=== PATIENT | female | born 1935 ===

== ENCOUNTER 2018-08-10 06:12 | Day surgery (SDC) | payer MEDICARE, MEDICAID ==
[2018-06-06 11:58] VITALS: BMI 33.3
[2018-08-10 07:07] LABS: BASO # 0.01 K/mm3 (0.0-2.0); BASO % 0.1 % (0.0-3.0); EOS # 0.2 (0.0-0.7); EOS % 1.4 % (1.5-5.0); GRAN # 7.92 (1.4-6.5); GRAN % 71.2 % (50.0-68.0); HEMOGLOBIN 10.4 g/dL (12.0-16.0); LYMPH # 2.2 (1.2-3.4); LYMPH % 19.8 % (22.0-35.0); MEAN CELL VOLUME 91.5 fl (80.0-105.0); MEAN CORPUSCULAR HEMOGLOBIN 29.6 pg (25.0-35.0); MEAN CORPUSCULAR HGB CONC 32.4 g/dl (31.0-37.0); MEAN PLATELET VOLUME 8.6 fl (7.0-11.0); MONO # 0.8 (0.1-0.6); MONO % 7.5 % (1.0-6.0); RBC 3.51 10^6/uL (3.5-6.1); RED CELL DISTRIBUTION WIDTH 13.6 % (11.5-14.5); WHITE BLOOD COUNT 11.1 10^3/uL (4.5-11.0)
[2018-08-10 07:10] LABS: INR 1.13; PARTIAL THROMBOPLASTIN TIME 28.2 Seconds (25.1-36.5)
[2018-08-10 07:11] LABS: CALCIUM 9.4 mg/dL (8.4-10.5)
[2018-08-10] MEDS ORDERED: Phenylephrine 10 mg/ml Inj ONE (07:44)
[2018-08-10] MEDS ORDERED: Lidocaine 2% Inj (20ml) ONE (07:44)
[2018-08-10] MEDS ORDERED: Adenosine 90 mg/30mL IV ONE (07:44)
[2018-08-10] MEDS ORDERED: Heparin 2,000 ML IV ONE (07:45)
[2018-08-10] MEDS ORDERED: Iohexol 350mgl/ml 50 ML ONE (07:45)
[2018-08-10] MEDS ORDERED: Nitroglycerin 50mg in D5W 50 MG/250 ML BOTTLE IV ONE (07:45)
[2018-08-10] MEDS ORDERED: Iodixanol 320 MG/ML 200 ML BOTTLE IV ONE (07:45)
[2018-08-10] MEDS ORDERED: Iodixanol 320 MG/ML 100 ML BOTTLE IV ONE (07:45)
[2018-08-10] MEDS ORDERED: Midazolam 2 MG/2 ML VIAL ONE ×3 (08:34→09:44)
[2018-08-10] MEDS ORDERED: Eptifibatide 20 mg/10mL Inj IVP ONE ×2 (09:59→10:04)
[2018-08-10] MEDS ORDERED: Morphine 4 mg/ml ISec ONE (10:02)
--- NOTE | 2018-08-10 16:05 | CARDCATH ---
PROCEDURE DATE: 08/10/2018 PROCEDURE NOTE INDICATIONS: Jess is an 83-year-old female with past medical history significant for severe peripheral vascular occlusive disease, status post angioplasty and stenting of bilateral SFA, who had severe CAD status post PTCA and stenting of RCA, underwent a nuclear stress test which was abnormal secondary to symptoms of dyspnea on exertion. They also noted to have a nonhealing ulcer ongoing for more than 6 months and therefore was brought to the company laborer for further evaluation and treatment of underlying CAD and peripheral vascular disease. PROCEDURE PERFORMED: Left heart catheterization with selective left and right coronary angiogram, left ventriculogram, FFR of RCA physiologically is nonsignificant at 0.87. This bilaterally selective bilateral COURT COMMISSIONER of left SFA in-stent restenosis drug-coated balloon. Lesion reduction from 100 percent down to 10 percent, unable to restore the flow secondary to diffuse thrombus. A 6-Lao right femoral artery access Mynx closure device for hemostasis. Left heart cath findings, left main large-sized vessel bifurcates into LAD and circumflex. LAD has diffuse 50 to 60 percent calcified stenosis, gives off two small diagonal branches, left-sided vessel runs in the AV groove. SMA 25 percent stenosis, gives off obtuse marginal branch. RCA proximal 70 percent calcific stenosis, gives off right PDA and PLV . Distal RCA stents are patent. FFR of the right coronary artery showed FFR was 0.87 physiologically nonsignificant. Subsequently, was performed. Catheter was subsequently advanced to the left common femoral artery due to the left SFA . Angiographic findings of the lower extremity, bilateral patent, profunda femoris patent, SFA diffuse, in-stent restenosis 50 to 60 percent in the right SFA. One vessel peroneal going up to the ankle with superficial wire at collateral circulation. Left lower extremity, left common patent. SFA 100 percent occluded, in-stent restenosis, profunda femoris patent, distal via the collaterals feeding popliteal with one vessel run-off below the knee. Left below the knee shows peroneal feeding up to the level of the foot with superficial and deep . INTERVENTION: Attempt was made to cross the in-stent restenosis with 0.035 and subsequently 0.018 wire and balloon angioplasty was attempted, which was able to decrease the in-stent restenosis, but unable to restore the flow secondary to heavy thrombus burden. Because of the amount that I used, it was decided to bring the patient back with possible atherectomy. IMPRESSION: Physiologically nonsignificant right coronary artery stenosis, diffuse coronary artery disease, left superficial femoral artery and in-stent restenosis, unable to recanalize secondary to heavy thrombus burden, right superficial femoral artery, in-stent restenosis. RECOMMENDATIONS: Guideline-directed therapy for CAD and PVD and then first stage intervention of the left SFA and deep possibly atherectomy. Emmanuel Acosta MD
--- NOTE | 2018-08-10 16:17 | CP.PCM.CON ---
History of Present Illness - History of Present Illness History of Present Illness: Nephrology Consultation Note: Assessment: Stable CAD, PVD Diabetic chronic Kidney Disease (E11.22) Hypertensive Chronic Kidney Disease (I12.0) End stage renal disease (N18.6) dependence on hemodialysis (Z99.2) (MWF) via AVF Anemia (D64.9), Hyperphosphatemia (E83.39), Secondary Hyperparathyroidism (E21.1), HTN (I12.0) Plan: Will plan for HD today if okay/considered stable by cardiology as recent tele with concerns for intermittent junctional rhythm otherwise Will plan for dialysis tomorrow. Continue with Nephrovite 1 tab/day. stable K and volume status okay PRBC as needed for anemia. not on JORY with dialysis as last Hb 10.4 Continue with phos binders BP control with meds as ordered. Glycemic control, Dialysis consistent diet Further work up/management as per primary team Dose meds/antibiotics (if needed) for ESRD status. Avoid fleets enema/magnesium based laxatives. Thanks for allowing me to participate in care of your patient. Will follow patient with you. Please call if any Qs Dr Jovani Bell Office: [phone] Chief Complaint; dialysis HPI: Pt is a 83 F with hx of ESRD on hemodialysis (MWF) via AVF , last dialysis mon, chronic anemia, hyperphosphatemia, secondary hyperparathyroidism, Diabetes Mellitus, hypertension CAD PVD presented for elective cath for CAD and PVD. Renal consult requested for ESRD management. she feels usual health reports of junctional rhythm on tele ROS: Cardiovascular: No chest pain. Pulmonary: No shortness of breath Gastrointestinal: denies abdominal pain No nausea. No vomiting. Genitourinary: No pain while urinating. Denies blood in urine. All other negative except as mentioned in HPI Physical Examination: General Appearance: Comfortable, in no acute respiratory distress, co-operative . obese Vitals reviewed and noted as below Head; Atraumatic, normocephalic ENT: no ulcers no thrush. Tongue is midline. Oropharynx: no rash or ulcers. EYES: Pupils are equal, round and reactive to light accommodation. Eye muscles and extraocular movement intact. Sclera is anicteric. Neck; supple no lymphadenopathy, no thyromegaly or bruit Lungs: Normal respiratory rate/effort. Breath sounds bilateral equal and clear Heart: Normal rate. s1s2 normal. No rub or gallop. Extremities: no edema. No varicose veins. left foot in dressing Neurological: Patient is alert, awake and oriented to person, place and time. No focal deficit. Strength bilateral appropriate and equal Skin: Warm and dry. Normal turgor. No rash. Palpitation: Normal elasticity for age Abdomen: Abdomen is soft. Bowel sounds +. There is no abdominal tenderness, no guarding/rigidity or organomegaly Psych: limited insight and normal affect/mood MSK: no joint tenderness or swelling. Digits and nails normal, no deformity : kidney or bladder not palpable Access: AVF Labs/imaging reviewed. Past medical history, past surgical history, family history, social history, allergy reviewed and noted as below Family Hx: no hx of CKD. Non contributory Past Patient History - Tetanus Immunizations Tetanus Immunization: Unknown - Past Medical History & Family History Past Medical History?: Yes - Past Social History Smoking Status: Never Smoked - CARDIAC Hx Pacemaker: No - PULMONARY Hx Bronchitis: Yes Hx Chronic Obstructive Pulmonary Disease (COPD): Yes Hx Pneumonia: Yes (requiring hospitalization AUG 2017) - NEUROLOGICAL Hx Paralysis: No - HEENT Hx Cataracts: Yes (CHASITY IOL) - RENAL Hx Chronic Kidney Disease: Yes Hx Kidney Stones: No - ENDOCRINE/METABOLIC Hx Hypothyroidism: Yes - HEMATOLOGICAL/ONCOLOGICAL Hx Blood Transfusions: Yes Hx Blood Transfusion Reaction: No - INTEGUMENTARY Hx Dermatological Problems: Yes Other/Comment: Chronic left ankle wound AND LEFT FOOT - MUSCULOSKELETAL/RHEUMATOLOGICAL Hx Musculoskeletal Disorders: Yes - GASTROINTESTINAL Hx Gastrointestinal Disorders: Yes Other/Comment: C/O NAUSEA NO VOMITTING - GENITOURINARY/GYNECOLOGICAL Hx Genitourinary Disorders: No Hx Urinary Tract Infection: Yes - PSYCHIATRIC Hx Emotional Abuse: No Hx Physical Abuse: No Hx Substance Use: No - SURGICAL HISTORY Hx Surgeries: Yes - ANESTHESIA Hx Anesthesia Reactions: No Hx Malignant Hyperthermia: No Meds Allergies/Adverse Reactions: Allergies Allergy/AdvReac Type Severity Reaction Status Date / Time ciprofloxacin [From Cipro] AdvReac Intermediate VOMITING Verified 01/18/18 16:15 Results - Vital Signs Recent Vital Signs: Last Vital Signs Temp 98 F 08/10/18 11:35 Pulse 62 08/10/18 15:20 Resp 18 08/10/18 15:20 BP 142/60 08/10/18 15:20 Pulse Ox 95 12/12/18 06:45 - Labs Result Diagrams: 08/10/18 06:50 08/10/18 06:50 Labs: Laboratory Results - last 24 hr 08/10/18 08/10/18 08/10/18 06:50 06:50 06:50 WBC 11.1 H RBC 3.51 Hgb 10.4 L Hct 32.1 L MCV 91.5 MCH 29.6 MCHC 32.4 RDW 13.6 Plt Count 303 MPV 8.6 Gran % 71.2 H Lymph % (Auto) 19.8 L Culberson % (Auto) 7.5 H Eos % (Auto) 1.4 L Baso % (Auto) 0.1 Gran # 7.92 H Lymph # (Auto) 2.2 [place] # (Auto) 0.8 H Eos # (Auto) 0.2 Baso # (Auto) 0.01 PT 13.0 H INR 1.13 APTT 28.2 Sodium 135 Potassium 4.7 Chloride 96 L Carbon Dioxide 29 Anion Gap 15 BUN 67 H Creatinine 6.2 H Est GFR ( Amer) 8 Est GFR (Non-Af Amer) 6 POC Glucose (mg/dL) Random Glucose 209 H Hemoglobin A1c Calcium 9.4 Blood Type Antibody Screen BBK History Checked 08/10/18 08/10/18 08/10/18 06:50 06:50 11:58 WBC RBC Hgb Hct MCV MCH MCHC RDW Plt Count MPV Gran % Lymph % (Auto) Culberson % (Auto) Eos % (Auto) Baso % (Auto) Gran # Lymph # (Auto) [place] # (Auto) Eos # (Auto) Baso # (Auto) PT INR APTT Sodium Potassium Chloride Carbon Dioxide Anion Gap BUN Creatinine Est GFR ( Amer) Est GFR (Non-Af Amer) POC Glucose (mg/dL) 210 H Random Glucose Hemoglobin A1c 7.4 H Calcium Blood Type O POSITIVE Antibody Screen Negative BBK History Checked Patient has bt
[2018-08-10] MEDS: Insulin Reg-LOW-Coverage SC SCH (22:03)
[2018-08-11 00:55] VITALS: BP 105/47; RESP 20; O2SAT 97
[2018-08-11 06:37] VITALS: TEMP 98.2
[2018-08-11] MEDS ORDERED: Levothyroxine 100 MCG TAB PO SCH (09:00)
[2018-08-11] MEDS ORDERED: metOLazone 5 MG TAB PO SCH (10:00)
[2018-08-11] MEDS ORDERED: Metoprolol Succinate 50 mg XL Tab PO SCH (10:00)
[2018-08-11] MEDS ORDERED: Omega-3-Acid Ethyl Esters 1 GM Cap PO SCH (10:00)
[2018-08-11] MEDS ORDERED: Multivitamin Vitamin B Complex (Nephro-Vite) Tab PO SCH (10:00)
[2018-08-11] MEDS: Insulin Reg-LOW-Coverage SC SCH (13:34)
--- NOTE | 2018-08-11 14:23 | CP.PCM.HP ---
History of Present Illness - History of Present Illness History of Present Illness: Marc Ya DO, PGY-1 Cardiology Admission History and Physical for Dr. Dave Mercado is a pleasant 83 year old female with PMH of CAD (s/p JAVIER to RCA), PVD (s/p peripheral angioplasty x 2), CKD (on MWF HD), DM2, and osteoporosis who is admitted s/p repeat L heart cath with peripheral angio. Cath found physiologically nonsignificant RCA stenosis, diffuse CAD, L SFA in-stent restenosis. Attempt was made to correct in-stent restenosis with subsequent decrease of the in-stent stenosis. On examination after procedure, patient states she feels fine and denied CP, SOB, cough, peripheral pain, pain at the insertion site, and nausea/vomiting. As patient is s/p L heart cath with peripheral angio with hx of CKD, arrangements were made for inpatient monitoring and dialysis after the procedure. Patient normally goes for MWF dialysis at [facility]. Dr. Bell's group was consulted and arrangements for HD will be made. PMH: CAD (s/p JAVIER to RCA), PVD (s/p peripheral angioplasty x 2), CKD (on MWF HD), DM2, and osteoporosis PSH: cardiac cath January 2017, R partial foot amputation All: ciprofloxacin Soc Hx: denies current tobacco, alcohol, or drug use. Is ambulatory at home but is not very active otherwise. Fam Hx: reviewed, non-contributory Home meds: reviewed, as per MAR Present on Admission - Present on Admission Any Indicators Present on Admission: No History of DVT/PE: No History of Uncontrolled Diabetes: No Urinary Catheter: No Decubitus Ulcer Present: No Review of Systems - Constitutional Constitutional: absent: Chills, Fever - EENT Eyes: absent: Blurred Vision - Cardiovascular Cardiovascular: Claudication. absent: Chest Pain, Chest Pain at Rest, Chest Pain with Activity, Diaphoresis, Dyspnea, Lightheadedness, Palpitations - Respiratory Respiratory: absent: Cough, Dyspnea - Gastrointestinal Gastrointestinal: absent: Abdominal Pain, Nausea, Vomiting - Genitourinary Genitourinary: absent: Change in Urinary Stream Past Patient History - Tetanus Immunizations Tetanus Immunization: Unknown - Past Medical History & Family History Past Medical History?: Yes - Past Social History Smoking Status: Never Smoked - CARDIAC Hx Pacemaker: No - PULMONARY Hx Bronchitis: Yes Hx Chronic Obstructive Pulmonary Disease (COPD): Yes Hx Pneumonia: Yes (requiring hospitalization AUG 2017) - NEUROLOGICAL Hx Paralysis: No - HEENT Hx Cataracts: Yes (CHASITY IOL) - RENAL Hx Chronic Kidney Disease: Yes Hx Kidney Stones: No - ENDOCRINE/METABOLIC Hx Hypothyroidism: Yes - HEMATOLOGICAL/ONCOLOGICAL Hx Blood Transfusions: Yes Hx Blood Transfusion Reaction: No - INTEGUMENTARY Hx Dermatological Problems: Yes Other/Comment: Chronic left ankle wound AND LEFT FOOT - MUSCULOSKELETAL/RHEUMATOLOGICAL Hx Musculoskeletal Disorders: Yes - GASTROINTESTINAL Hx Gastrointestinal Disorders: Yes Other/Comment: C/O NAUSEA NO VOMITTING - GENITOURINARY/GYNECOLOGICAL Hx Genitourinary Disorders: No Hx Urinary Tract Infection: Yes - PSYCHIATRIC Hx Emotional Abuse: No Hx Physical Abuse: No Hx Substance Use: No - SURGICAL HISTORY Hx Surgeries: Yes - ANESTHESIA Hx Anesthesia Reactions: No Hx Malignant Hyperthermia: No Meds Allergies/Adverse Reactions: Allergies Allergy/AdvReac Type Severity Reaction Status Date / Time ciprofloxacin [From Cipro] AdvReac Intermediate VOMITING Verified 01/18/18 16:15 Physical Exam - Constitutional Appears: Non-toxic, No Acute Distress - Head Exam Head Exam: ATRAUMATIC, NORMOCEPHALIC - Eye Exam Eye Exam: EOMI, Normal appearance, PERRL - ENT Exam ENT Exam: Mucous Membranes Moist - Neck Exam Neck exam: Positive for: Full Rom, Normal Inspection - Respiratory Exam Respiratory Exam: Clear to Auscultation Bilateral, NORMAL BREATHING PATTERN. absent: Rales, Rhonchi, Wheezes - Cardiovascular Exam Cardiovascular Exam: REGULAR RHYTHM, RRR, +S1, +S2. absent: Diastolic murmur, Gallop, Rubs, Systolic Murmur - GI/Abdominal Exam GI & Abdominal Exam: Normal Bowel Sounds. absent: Guarding, Tenderness - Extremities Exam Extremities exam: Positive for: full ROM, normal capillary refill, pedal pulses present. Negative for: calf tenderness, pedal edema - Neurological Exam Neurological exam: Alert, Oriented x3 - Psychiatric Exam Psychiatric exam: Normal Affect, Normal Mood - Skin Skin Exam: Dry, Intact, Warm Results - Vital Signs Recent Vital Signs: Last Vital Signs Temp 98.2 F 08/11/18 06:00 Pulse 66 08/11/18 06:00 Resp 20 08/11/18 00:01 BP 105/47 L 08/11/18 00:01 Pulse Ox 97 08/11/18 00:01 - Labs Result Diagrams: 08/10/18 06:50 08/10/18 06:50 Labs: Laboratory Results - last 24 hr 08/10/18 08/10/18 08/11/18 16:31 21:20 07:18 POC Glucose (mg/dL) 266 H 220 H 213 H Assessment & Plan - Assessment and Plan (Free Text) Assessment: 83 yo F with PMH of CAD (s/p JAVIER to RCA), PVD (s/p peripheral angioplasty x 2), CKD (on MWF HD), DM2, and osteoporosis is admitted s/p repeat L heart cath with peripheral angiogram for monitoring and cashier receptionist of inpatient HD. Plan: S/p L heart cath with peripheral angio Peripheral angio found in-stent stenosis of R SFA Attempt was made to reduce in-stent stenosis but unable to restore flow 2/2 heavy thrombus burden Recommend continued medical management of CAD and PVD with ASA, plavix May discharge home tomorrow after dialysis HHD Monitor on telemetry, discharge tomorrow Case and plan reviewed and discussed with my attending Dr. Dave Ya DO IM Resident PGY-1 - Date & Time Date: 08/10/18 Time: 15:00
--- NOTE | 2018-08-11 14:54 | CP.PCM.PN ---
Subjective - Date & Time of Evaluation Date of Evaluation: 08/11/18 Time of Evaluation: 14:53 - Subjective Subjective: Nephrology Consultation Note: Assessment: Stable CAD, PVD Diabetic chronic Kidney Disease (E11.22) Hypertensive Chronic Kidney Disease (I12.0) End stage renal disease (N18.6) dependence on hemodialysis (Z99.2) (MWF) via AVF Anemia (D64.9), Hyperphosphatemia (E83.39), Secondary Hyperparathyroidism (E21.1), HTN (I12.0) Plan: Will plan for HD today Continue with Nephrovite 1 tab/day. PRBC as needed for anemia. not on JORY with dialysis as last Hb 10.4 Continue with phos binders BP control with meds as ordered. Glycemic control, Dialysis consistent diet Further work up/management as per primary team Dose meds/antibiotics (if needed) for ESRD status. Avoid fleets enema/magnesium based laxatives. Thanks for allowing me to participate in care of your patient. Will follow patient with you. Please call if any Qs Dr Jovani Bell Office: [phone] Chief Complaint; dialysis HPI: Pt is a 83 F with hx of ESRD on hemodialysis (MWF) via AVF , last dialysis mon, chronic anemia, hyperphosphatemia, secondary hyperparathyroidism, Diabetes Mellitus, hypertension CAD PVD presented for elective cath for CAD and PVD. Renal consult requested for ESRD management. she feels usual health reports of junctional rhythm on tele ROS: Cardiovascular: No chest pain. Pulmonary: No shortness of breath Gastrointestinal: denies abdominal pain No nausea. No vomiting. Genitourinary: No pain while urinating. Denies blood in urine. All other negative except as mentioned in HPI Physical Examination: General Appearance: Comfortable, in no acute respiratory distress, co-operative . obese Vitals reviewed and noted as below Head; Atraumatic, normocephalic ENT: no ulcers no thrush. Tongue is midline. Oropharynx: no rash or ulcers. EYES: Pupils are equal, round and reactive to light accommodation. Eye muscles and extraocular movement intact. Sclera is anicteric. Neck; supple no lymphadenopathy, no thyromegaly or bruit Lungs: Normal respiratory rate/effort. Breath sounds bilateral equal and clear Heart: Normal rate. s1s2 normal. No rub or gallop. Extremities: no edema. No varicose veins. left foot in dressing Neurological: Patient is alert, awake and oriented to person, place and time. No focal deficit. Strength bilateral appropriate and equal Skin: Warm and dry. Normal turgor. No rash. Palpitation: Normal elasticity for age Abdomen: Abdomen is soft. Bowel sounds +. There is no abdominal tenderness, no guarding/rigidity or organomegaly Psych: limited insight and normal affect/mood MSK: no joint tenderness or swelling. Digits and nails normal, no deformity : kidney or bladder not palpable Access: AVF Labs/imaging reviewed. Past medical history, past surgical history, family history, social history, allergy reviewed and noted as below Family Hx: no hx of CKD. Non contributory Objective - Vital Signs/Intake and Output Vital Signs (last 24 hours): Temp Pulse Resp BP Pulse Ox 98.2 F 66 20 105/47 L 97 08/11/18 06:00 08/11/18 06:00 08/11/18 00:01 08/11/18 00:01 08/11/18 00:01 Intake and Output: 08/11/18 08/11/18 06:59 18:59 Intake Total 240 Output Total 250 Balance -10 - Medications Medications: Current Medications Aspirin (Aspirin Chewable) 81 mg PO DAILY [facility] Atorvastatin Calcium (Lipitor) 10 mg PO DIN [facility] Clopidogrel Bisulfate (Plavix) 75 mg PO DAILY [facility] Fenofibrate (Tricor) 145 mg PO DAILY [facility] Furosemide (Lasix) 80 mg PO DAILY [facility] Last Admin: 08/11/18 10:01 Dose: Not Given Insulin Human Regular (Humulin R Low) 0 units SC [facility]; Protocol Last Admin: 08/11/18 13:34 Dose: Not Given Levothyroxine Sodium (Synthroid) 100 mcg PO ACB [facility] Metolazone (Zaroxolyn) 5 mg PO DAILY [facility] Last Admin: 08/11/18 10:03 Dose: Not Given Metoprolol Succinate (Toprol Xl) 50 mg PO DAILY [facility] Last Admin: 08/11/18 10:02 Dose: Not Given [id number] Ethyl Esters (Lovaza) 2 gm PO DAILY [facility] Sevelamer HCl (Renagel) 800 mg PO TID [facility] Last Admin: 08/11/18 10:03 Dose: Not Given Vitamin B Complex/Vit C/Folic Acid (Nephro-Emily) 1 tab PO DAILY [facility] Vitamin E (Vitamin E 400 Units Cap) 400 intlu PO DAILY [facility] - Labs Labs: 08/10/18 06:50 08/10/18 06:50 PT 13.0 SECONDS (9.4-12.5) H 08/10/18 06:50 INR 1.13 08/10/18 06:50 APTT 28.2 Seconds (25.1-36.5) 08/10/18 06:50
[2018-08-11 16:09] VITALS: PULSE 69
--- NOTE | 2018-08-11 21:44 | CARD ---
APPROVED REPORT Date of service: 08/11/2018 EKG Measurement Heart [id number] <Conclusion> Normal sinus rhythm with sinus arrhythmia T wave abnormality, consider lateral ischemia Prolonged QT Abnormal ECG
== END 2018-08-11 17:24 | disposition home or self-care (01) ==
LOC: CATH 06:12 → 2RSO 11:36 → CATH 08-11 17:24
PROVIDERS: ATTEND Internal Medicine Interventional Cardiology
DX: I25.10 Atherosclerotic heart disease of native coronary artery without angina pectoris (principal); I12.0 Hypertensive chronic kidney disease with stage 5 chronic kidney disease or end stage renal disease; N18.6 End stage renal disease; T82.856A Stenosis of peripheral vascular stent, initial encounter; E11.51 Type 2 diabetes mellitus with diabetic peripheral angiopathy without gangrene; E11.22 Type 2 diabetes mellitus with diabetic chronic kidney disease; I74.3 Embolism and thrombosis of arteries of the lower extremities; D64.9 Anemia, unspecified; E03.9 Hypothyroidism, unspecified; E83.39 Other disorders of phosphorus metabolism; N25.81 Secondary hyperparathyroidism of renal origin; J44.9 Chronic obstructive pulmonary disease, unspecified; Z99.2 Dependence on renal dialysis; Z79.4 Long term (current) use of insulin
CPT/HCPCS: 36415; 37224; 80048; 82948 ×2; 83036; 85025; 85610; 85730; 86850; 86900; 93005; 93458; 93571; 99152; 99153; C1725 ×4; C1760 ×2; C1769 ×5; C1887 ×2; C1894; C2629; J0153; J1327; J1644 ×2; J2250; J2270; J3010; Q9966; Q9967 ×2

== ENCOUNTER 2018-10-24 08:13 | Day surgery (SDC) | payer OTHER, MEDICARE, MEDICAID ==
[2018-10-12 23:53] VITALS: BMI 32.3
[2018-10-24] MEDS ORDERED: Verapamil 0 ML ONE (09:54)
[2018-10-24] MEDS ORDERED: Lidocaine PF 2% (5 ml) Inj (For Cardiac Arrhy) ONE (09:54)
[2018-10-24] MEDS ORDERED: Adenosine 90 mg/30mL IV ONE ×3 (09:54→11:10)
[2018-10-24] MEDS ORDERED: Iodixanol 320 MG/ML 200 ML BOTTLE IV ONE (09:56)
[2018-10-24] MEDS ORDERED: Iohexol 350mgl/ml 50 ML ONE (09:56)
[2018-10-24] MEDS ORDERED: Heparin 2,000 ML IV ONE (09:56)
[2018-10-24] MEDS ORDERED: Midazolam 2 MG/2 ML VIAL ONE ×2 (10:13→10:34)
[2018-10-24] MEDS ORDERED: Sodium Chloride 0.9% 1,000 ML IV SCH (12:45)
[2018-10-24 14:09] VITALS: TEMP 97.4
[2018-10-24 14:12] VITALS: O2SAT 99
--- NOTE | 2018-10-24 17:04 | CARDCATH ---
PROCEDURE DATE: 10/24/2018 INDICATION: Ms. Jess Theodore is an 83-year-old female who was transferred over from [facility], [place] after having an episode of non-ST elevation CT. The patient underwent a diagnostic catheterization showing high grade distal RCA stenosis and moderate proximal RCA stenosis. PROCEDURES: Left heart catheterization with selective right coronary angiogram. PTCA stenting of distal RCA with deployment of 3.0 x 18 Jani drug-eluting stent, regeneration from 85% down to 0% ENRIKE-3 flow, FFR of proximal RCA physiologically non-significant at 0.81, 6-Indian right femoral artery access, and Mynx closure device for hemostasis. ANGIOGRAPHIC FINDINGS: Proximal RCA was patent, nonobstructive with 65-70% stenosis. RCA stent patent. Distal RCA at the bifurcation had a 90% stenosis. [facility] wire was used to negotiate through the distal RCA. Lesion was predilated with a 2.0, 2.5 and 3.0 balloon and subsequently stented with a 3.0 x 8 Frazer drug-eluting stent. Finally FFR of the proximal RCA lesion was done, which was physiologically nonsignificant at 0.81. IMPRESSION: Successful percutaneous transluminal coronary angioplasty stenting of distal right coronary artery with deployment of 3.0 x 18 Jani drug-eluting stent. FFR of the proximal right coronary artery physiologically nonsignificant at 0.81. RECOMMENDATION: Continue patient on dual antiplatelet therapy . Continue therapy for CAD. The patient remission back to chronic . Emmanuel Acosta MD
[2018-10-24 18:02] VITALS: BP 163/65; PULSE 80; RESP 27
== END 2018-10-24 18:10 | disposition short-term general hospital (02) ==
LOC: CATH 08:13 → CCU 12:12 → CATH 18:10
PROVIDERS: ATTEND Internal Medicine Interventional Cardiology
DX: I21.4 Non-ST elevation (NSTEMI) myocardial infarction (principal); I25.10 Atherosclerotic heart disease of native coronary artery without angina pectoris
CPT/HCPCS: 82948; 99152; 99153; C1725 ×3; C1760; C1769 ×3; C1874; C1887; C1894; C2629; C9600; J0153; J1644 ×2; J2250; J3010; J7030; Q9966; Q9967